=== PATIENT | male | born 1970 | race Asian ===

== ENCOUNTER 2017-01-09 11:24 | Emergency (ER) | payer OTHER ==
[~2017-01-09] VITALS: Ht 165.1 cm; Wt 78.8 kg
[2017-01-09] MEDS ORDERED: MEDROL DOSEPAK4 MG PO (15:26)
[2017-01-09] MEDS ORDERED: PERCOCET 5/31 TABLET PO (15:26)
[2017-01-09 15:42] VITALS: BP 144/86
== END 2017-01-09 15:44 | disposition home or self-care (01) ==
LOC: EME 11:24
DX: M51.26 Other intervertebral disc displacement, lumbar region (principal); F17.200 Nicotine dependence, unspecified, uncomplicated
CPT/HCPCS: 72131; 99281; 99282; J1885